=== PATIENT | male | born 1945 | race Caucasian/White ===

== ENCOUNTER → 2017-10-03 | Outpatient (CLI) | payer MEDICARE ==
[~2017-10-03] MED LIST: PROHANCE 279.3MG/ML 15ML VIAL (A9576) As Ordered; PROHANCE 279.3MG/ML 5ML VIAL (A9576) As Ordered
== END ==
LOC: M RAD 07:17
DX: K86.2 Cyst of pancreas (principal)
CPT/HCPCS: A9576

== ENCOUNTER → 2018-04-24 | Outpatient (CLI) | payer MEDICARE ==
[~2018-04-24] MED LIST changes: -PROHANCE 279.3MG/ML 15ML VIAL (A9576) As Ordered; -PROHANCE 279.3MG/ML 5ML VIAL (A9576) As Ordered; +PROHANCE 279.3MG/ML 5ML VIAL (A9576) As Ordered ONE
--- NOTE | 2018-04-24 16:35 | REP ---
MRI ABDOMEN WITH AND WITHOUT CONTRAST: TECHNIQUE: Multiple sequences were obtained in the coronal and axial planes prior to and following the intravenous administration of 8 mL ProHance. Comparison is made with prior MRI 10/03/2017. The images are centered on the pancreas. Once again multiple simple appearing cystic structures are seen in the head and body of the pancreas. One of the cysts in the body of the pancreas have decreased in size. The others are stable. There is no abnormal pancreatic enhancement and no evidence of enhancing mass. There is no pancreatic duct dilatation. Common bile duct appears normal in caliber. Gallbladder is grossly unremarkable. Visualized portions of the liver, spleen, adrenals, and kidneys appear unremarkable. I see no adenopathy or free fluid in the visualized abdomen. IMPRESSION: Multiple small cysts in the pancreas for the most part are stable and unchanged. One of the cysts in the body of the pancreas has mildly decreased in size. Electronically Signed by Arash Griffith MD 04/24/2018 04:57 P
== END ==
LOC: M RAD 14:50
PROVIDERS: ATTEND Internal Medicine Gastroenterology
DX: D13.6 Benign neoplasm of pancreas (principal); R63.4 Abnormal weight loss; K86.2 Cyst of pancreas
CPT/HCPCS: 74183; A9576

== ENCOUNTER → 2019-11-21 | Outpatient (CLI) | payer MEDICARE ==
[~2019-11-21] MED LIST changes: +PROHANCE 279.3MG/ML 15ML VIAL As Ordered ONE; -PROHANCE 279.3MG/ML 5ML VIAL (A9576) As Ordered ONE; +PROHANCE 279.3MG/ML 5ML VIAL As Ordered ONE
--- NOTE | 2019-11-21 10:40 | REPVR ---
PROCEDURE INFORMATION: Exam: MR Abdomen Without and With Contrast Exam date and time: 11/21/2019 9:39 AM Age: 74 years old Clinical indication: Abnormal findings; Abnormal radiologic finding of the abdomen; Radiologic exam and body structure: Mri; Patient HX: F/u pancreatic cysts, ; additional info: Pancreatic cyst TECHNIQUE: Imaging protocol: MR of the abdomen without and with intravenous contrast. Contrast material: PROHANCE; Contrast volume: 16 ml; Contrast route: INTRAVENOUS (IV); COMPARISON: MRI ABD W/O FOL WITH 04/24/2018 3:06 PM FINDINGS: Liver: No mass. Gallbladder and bile ducts: The common bile duct measures up to 7 mm in diameter. No evidence of choledocholithiasis. No intrahepatic ductal dilatation. No gallstones or gallbladder wall thickening. Pancreas: No abnormal distention of the main pancreatic duct. Redemonstration of multiple pancreatic cysts. The largest cyst, within the body of the pancreas, measures 13 mm, unchanged. The largest cyst, within the uncinate process, measures 10 mm, unchanged. Several additional smaller pancreatic cysts, which appear stable in size. Pancreatic cysts demonstrate no internal enhancement or nodularity. Spleen: Unremarkable. No splenomegaly. Adrenals: Unremarkable. No mass. Kidneys and ureters: 2 mm right renal cortical cyst. No hydronephrosis Stomach and bowel: No bowel obstruction. Colonic diverticulosis. Intraperitoneal space: No free fluid. 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 Bones/joints: Degenerative change of the spine. Bilateral hip arthroplasties. Soft tissues: Unremarkable. IMPRESSION: Stable pancreatic cysts, which no worrisome imaging features. Recommend reimaging every 2 years for a total of 10 years. (PRIETO Clements et al. ACR White Paper, September 2016) COMMENTS: Consistent with the [employer]'s Incidental Findings Committee white paper (J Am Sohan Radiol 2018): Any incidental renal lesion less than 1.0 cm or classified as too small to characterize, or any incidental cystic renal lesion characterized as simple-appearing, is likely benign. No follow-up imaging is recommended for these lesions per consensus recommendations based on imaging criteria. Electronically signed by: Ingrid Briones On 11/21/2019 10:40:47 AM
== END ==
LOC: M RAD 08:22
PROVIDERS: ATTEND Internal Medicine Gastroenterology
DX: K86.2 Cyst of pancreas (principal); N28.89 Other specified disorders of kidney and ureter
CPT/HCPCS: 74183; A9576

== ENCOUNTER → 2020-12-15 | Outpatient (CLI) | payer MEDICARE ==
--- NOTE | 2020-12-15 13:28 | REP ---
INDICATION: RESTAGING PROSTATE CANCER. Rising PSA following treatment for malignant neoplasm of the prostate. COMPARISON: None. TECHNIQUE: Fifty-one minutes following the intravenous injection of a 9.11 mCi dose of F-18 FDG, three-dimensional PET scintigraphy is acquired from the skull base to the proximal thighs. Triplanar noncontrast CT scanning is acquired through the same anatomic range for attenuation correction, and image registration with scan parameters optimized to minimize radiation exposure to the patient. PET scintigraphy and CT datasets were fused and displayed on a workstation with multiplanar and projection display capability. FINDINGS: The patient is status post bilateral total hip arthroplasty. 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 There is arthritis associated soft tissue uptake in the periarticular soft tissues adjacent to the right shoulder. Head and neck soft tissues are unremarkable. No abnormal hypermetabolic uptake is seen in the thorax. There are 2 healing rib fractures involving the right anterior 5th and 6th ribs. There is mildly increased uptake associated with these. In the abdomen and pelvis, there is normal hepatic, splenic, gastrointestinal, and genitourinary FDG accumulation. No abnormal hypermetabolic uptake is seen in the abdomen or pelvis. No other abnormal skeletal hypermetabolic uptake is appreciated. There is some uptake associated with degenerative disc disease at the T11-12 level. IMPRESSION: No suspicious abnormal hypermetabolic uptake seen. Healing right 5th and 6th anterior rib fractures. <Electronically signed by Abraham Flynn > 12/15/20 [id number]
== END ==
LOC: M PLARAD 07:40
DX: C61 Malignant neoplasm of prostate (principal); R97.21 Rising PSA following treatment for malignant neoplasm of prostate
CPT/HCPCS: 78815; A9552

== ENCOUNTER → 2022-08-13 | Outpatient (CLI) | payer MEDICARE ==
[~2022-08-13] MED LIST changes: -PROHANCE 279.3MG/ML 15ML VIAL As Ordered ONE; +PROHANCE 279.3MG/ML 15ML VIAL ONE; -PROHANCE 279.3MG/ML 5ML VIAL As Ordered ONE; +PROHANCE 279.3MG/ML 5ML VIAL ONE
== END ==
LOC: M PLAIMG 10:30
PROVIDERS: ATTEND Internal Medicine Gastroenterology
DX: K86.2 Cyst of pancreas (principal)
CPT/HCPCS: 74183; A9576

== ENCOUNTER 2024-10-22 12:02 | Emergency (ER) | payer MEDICARE ==
[~2024-10-22] VITALS: Ht 170.2 cm; Wt 71.5 kg
[2024-10-22] MEDS ORDERED: AMOX875T2 PO (18:27)
[2024-10-22] MEDS: AUGMENTIN 875 MG TAB PO ONE (18:31)
[2024-10-22 19:05] LABS: BASO # 0.1 10^3/uL (0.0-0.2); BASO % 1.2 % (0.0-1.0); EOS # 0.2 10^3/uL (0.0-0.5); EOS % 3.9 % (0.0-3.0); LYMPH # 1.3 10^3/uL (1.5-5.0); LYMPH % 25.8 % (24.0-44.0); MONO # 0.5 10^3/uL (0.0-0.8); MONO % 9.7 % (2.0-8.0); NEUTROPHILS # 3.1 10^3/uL (1.5-8.5); NEUTROPHILS % 59.2 % (36.0-66.0); PLATELET COUNT, AUTOMATED 148 10^3/uL (150-450)
[2024-10-22 19:19] LABS: INR 1.3
[2024-10-22 19:59] VITALS: BP 105/71; TEMP 96.3; O2SAT 99
== END 2024-10-22 20:01 | disposition home or self-care (01) ==
LOC: M ED 12:02
DX: R04.0 Epistaxis (principal); I48.91 Unspecified atrial fibrillation; K21.9 Gastro-esophageal reflux disease without esophagitis; Z86.73 Personal history of transient ischemic attack (TIA), and cerebral infarction without residual deficits; Z79.2 Long term (current) use of antibiotics

== ENCOUNTER 2024-10-25 08:41 | Emergency (ER) | payer MEDICARE ==
[~2024-10-25] VITALS: Ht 170.2 cm; Wt 72.5 kg
[~2024-10-25 08:41] MED LIST changes: +AMOX875T2 PO; -PROHANCE 279.3MG/ML 15ML VIAL ONE; -PROHANCE 279.3MG/ML 5ML VIAL ONE
[2024-10-25] MEDS: OXYMETAZOLINE 0.05% NASAL SPRAY ONE (10:31)
[2024-10-25 11:52] VITALS: TEMP 97.8
[2024-10-25 11:54] VITALS: BP 128/71; O2SAT 98
== END 2024-10-25 11:55 | disposition home or self-care (01) ==
LOC: M ED 08:41
DX: Z48.00 Encounter for change or removal of nonsurgical wound dressing (principal); R04.0 Epistaxis; I48.91 Unspecified atrial fibrillation; Z86.73 Personal history of transient ischemic attack (TIA), and cerebral infarction without residual deficits; Z79.2 Long term (current) use of antibiotics